=== PATIENT | male | born 1935 | race African-American/Black ===

== ENCOUNTER 2018-03-12 14:35 | Inpatient (IN) | payer MEDICARE, BC ==
[2018-03-12 15:32] LABS: Mean Corpuscular HGB CONC 33.2 g/dL (32.0-36.0); Mean Corpuscular Hemoglobin 31.1 pg (27.0-31.0); Mean Corpuscular Volume 93.5 fL (78.0-98.0); Mean Platelet Volume 8.1 fL (7.4-10.4); Platelet Count 257 thou/uL (130-400); Red Blood Cell (RBC) Count 3.86 mill/uL (4.70-6.10); White Blood Cell (WBC) Count 6.5 thou/uL (4.8-10.8)
[2018-03-12 15:53] LABS: ALT (SGPT) 27 U/L (8-55); AST (SGOT) 30 U/L (5-34); Albumin 4.2 g/dL (3.4-4.8); Alkaline Phosphatase 98 U/L (40-150); Anion Gap 18 mmol/L (10-20); BUN (Urea Nitrogen) 46 mg/dL (8.4-25.7); Bilirubin, Total 0.6 mg/dL (0.2-1.2); Calc. Creatinine Clearance 0 mL/min (70-130); Calcium 9.4 mg/dL (7.8-10.44); Carbon Dioxide 18 mmol/L (23-31); Chloride 106 mmol/L (98-107); Estimated GFR-MDRD 11; Glucose 98 mg/dL (83-110); Protein, Total 8.2 g/dL (5.8-8.1); Sodium 138 mmol/L (136-145)
[2018-03-12 15:56] LABS: Band 1 % (5-11); Burr Cells SLIGHT = 2-5 cells (100X) (0-1/hpf); Elliptocytes SLIGHT = 2-5 cells (100X) (0-1/hpf); Eosinophils 1 % (0-10); Lymphocytes 38 % (21-51); MDiff Complete? YES; Monocytes 18 % (0-10); Neutrophil 40 % (42-75); Ovalocytes SLIGHT = 2-5 cells (100X) (0-1/hpf); PLT Morphology Comment Appears Adequate; Reactive Lymphocytes 2 % (0-10); Tear Drops SLIGHT = 2-5 cells (100X) (0-1/hpf)
[2018-03-12 17:58] VITALS: BMI 23.5
[2018-03-12] MEDS ORDERED: Ondansetron ODT 4 MG TAB PO PRN (19:16)
[2018-03-12] MEDS ORDERED: Senokot 8.6 MG TAB PO PRN (19:16)
[2018-03-12] MEDS ORDERED: Bisacodyl 5 MG TAB PO PRN (19:16)
[2018-03-12] MEDS ORDERED: Sodium Chloride 0.9% 1,000 ML IV SCH (19:30)
[2018-03-12] MEDS: Famotidine/PF 20 mg/2ml Vial SLOW IVP SCH (20:58)
[2018-03-12] MEDS: Heparin 5,000 UNITS/ML VIAL SC SCH (20:58)
--- NOTE | 2018-03-12 21:22 | ULT ---
RENAL ULTRASOUND: 03/12/18 INDICATION: Acute renal injury. COMPARISON: None. FINDINGS: The right kidney measures 10.1 x 5 x 4.7 cm. Left kidney measures 10.7 x 6.1 x 5.3 cm. No focal renal lesion or hydronephrosis is evident. The bladder is largely decompressed. IMPRESSION: No focal renal lesion or hydronephrosis. POS: [facility]
[2018-03-12] MEDS ORDERED: Dronedarone HCl 400 MG TAB PO SCH (22:00)
[2018-03-12] MEDS ORDERED: Furosemide 20 MG TAB PO SCH (22:00)
[2018-03-12] MEDS ORDERED: Tamsulosin HCl 0.4 MG CAP PO SCH (22:00)
[2018-03-12] MEDS ORDERED: Lisinopril 20 MG TAB PO SCH (22:00)
[2018-03-12] MEDS ORDERED: Ezetimibe 10 MG TAB PO SCH (22:00)
[2018-03-12] MEDS ORDERED: Simvastatin 20 MG TAB PO SCH (22:00)
[2018-03-13 02:04] LABS: Bilirubin Small (Negative); Blood, Urine Negative (Negative); Clarity CLEAR (Clear); Glucose, Urine (Dipstick) Negative (Negative); Leukocyte Negative (Negative); Nitrite Negative (Negative); Protein, Urine (Dipstick) Negative (Neg-Trace); Specific Gravity, Urine 1.014 (1.002-1.036); Urobilinogen 0.2 mg/dL (0.2-1.0); pH, Urine 5.5 (5.0-9.0)
[2018-03-13 02:07] LABS: Bacteria/HPF None Seen HPF (None Seen); WBC/HPF 0-3 HPF (0-3)
[2018-03-13 02:11] LABS: Hyaline Casts/LPF >50 HYALINE CAST LPF (0-3 Hyaline); Pathc Cast-AUWi Flag 11.48 (0-2.49)
[2018-03-13 02:50] LABS: Other Casts/LPF None Seen LPF (0-3 Hyaline); Renal Epithelial None Seen HPF (0-3); Transitional Epithelial NONE SEEN HPF (0-3)
[2018-03-13 04:59] LABS: #Eosinphils 0.1 thou/uL (0.0-0.7); #Lymphocytes 2.8 thou/uL (1.20-3.40); #Monocytes 0.8 thou/uL (0.11-0.59); #Neutrophils 1.9 thou/uL (1.40-6.50); %Basophils 0.8 % (0.0-1.0); %Eosinophils 2.2 % (0.0-10.0); %Lymphocytes 49.7 % (21.0-51.0); %Monocytes 14.2 % (0.0-10.0); %Neutrophils 33.1 % (42.0-75.0); Hemoglobin 10.5 g/dL (14.0-18.0); Mean Corpuscular HGB CONC 33.8 g/dL (32.0-36.0); Mean Corpuscular Hemoglobin 31.1 pg (27.0-31.0); Mean Corpuscular Volume 91.9 fL (78.0-98.0); Mean Platelet Volume 8.5 fL (7.4-10.4); Platelet Count 235 thou/uL (130-400); RBC Distribution Width 11.9 % (11.5-14.5); Red Blood Cell (RBC) Count 3.38 mill/uL (4.70-6.10); White Blood Cell (WBC) Count 5.7 thou/uL (4.8-10.8)
[2018-03-13 05:07] LABS: Anion Gap 14 mmol/L (10-20); BUN (Urea Nitrogen) 47 mg/dL (8.4-25.7); Calc. Creatinine Clearance 12 mL/min (70-130); Calcium 8.4 mg/dL (7.8-10.44); Carbon Dioxide 16 mmol/L (23-31); Chloride 108 mmol/L (98-107); Estimated GFR-MDRD 13; Glucose 83 mg/dL (83-110); Magnesium 1.5 mg/dL (1.6-2.6); Potassium 3.4 mmol/L (3.5-5.1); Sodium 135 mmol/L (136-145)
[2018-03-13] MEDS ORDERED: Polyethylene Glycol 3350 17 GM Packet PO PRN (07:05)
--- NOTE | 2018-03-13 07:14 | PDOC.EVN ---
Event Note - Event Note Event Note: h&p [id number]
--- NOTE | 2018-03-13 07:41 | HP ---
PRIMARY CARE PHYSICIAN: Dr. Eligio Acuña CHIEF COMPLAINT: Diarrhea. HISTORY OF PRESENT ILLNESS: This is an 83-year-old male with a known history of coronary artery disease, hypertension, diabetes, atrial fibrillation, who presents with a chief complaint of diarrhea. It is described as a watery diarrhea approximately 5-6 times a day for the last 3-4 days. The patient does not report any nausea or abdominal pain with this diarrhea. Denies any episodes of emesis as well. The patient presumably came in initially for diarrhea, but was also found to be in acute renal failure in the emergency department. At the time of my evaluation, the patient has no other complaints and is actually able to tolerate his supper. REVIEW OF SYSTEMS: As per HPI. CONSTITUTIONAL: Denies any significant weight gain or loss. Denies any recent fevers or chills. HEENT: No headaches, no lightheadedness, no vision changes. CARDIOVASCULAR: No issues with chest pain, chest pressure, nausea, vomiting, exertional dyspnea, numbness or tingling. RESPIRATORY: Denies any issues with cough, congestion, shortness of breath or recent upper respiratory infection. GASTROINTESTINAL: As per above. GENITOURINARY: The patient denies any change in his urinary color, quantity, frequency or odor. MUSCULOSKELETAL: Denies any new myalgias or arthralgias. SKIN: Denies any new rashes or lymphadenopathy. The remainder of the review of systems otherwise negative. PAST MEDICAL HISTORY: 1. Coronary artery disease status post coronary artery bypass graft. Unknown number of vessels. 2. Atrial fibrillation. 3. Diabetes. 4. Hypertension. 5. Hypothyroidism. 6. Status post left carotid endarterectomy. 7. Status post orthopedic surgery. HOME MEDICATIONS: As per EMR. His current list appears to include the following: Multivitamin 1 tab p.o. q.a.m., dronedarone 400 mg p.o. b.i.d., aspirin 81 mg p.o. daily, amlodipine 10 mg p.o. daily. Furosemide 20 mg p.o. b.i.d., Vytorin, simvastatin 10-20 mg p.o. at bedtime, lisinopril 20 mg p.o. b.i.d. Levothyroxine 50 mcg p.o. q.a.m., tamsulosin 0.4 mg p.o. at bedtime., polyethylene glycol 17 grams p.o. daily p.r.n., pantoprazole 40 mg p.o. b.i.d. The patient denies any awareness if his medications have changed in the last month or so. The patient states that we should "ask his ". The patient also denies any usage of supplemental medications, over the counter medication, vitamins or herbal regimens. SOCIAL HISTORY: The patient denies any alcohol, tobacco or illicit drug use. CODE STATUS: He endorses be FULL CODE at this point in time with his as his designated decision maker if he is unable to make his own medical decisions. FAMILY HISTORY: The patient denies any known family history of renal disease or GI disease. PHYSICAL EXAMINATION: VITAL SIGNS: Stable. GENERAL: The patient is awake, alert, appropriate, in no acute distress, seated in the hospital bed eating his dinner. HEENT: Normocephalic, atraumatic, slightly dry mucous membranes. Extraocular muscles are intact. CARDIOVASCULAR: S1, S2. No murmurs, rubs or gallops. Pulses 2+ bilateral upper extremities, no pitting pedal edema. RESPIRATORY: Reasonable air movement. No conversational dyspnea. Grossly clear to auscultation without wheezes, rales or rhonchi. ABDOMEN: Positive bowel sounds, soft, currently nontender to palpation. MUSCULOSKELETAL: Able to move all 4 extremities independently LABORATORY AND IMAGING: CBC: WBC 6.5, hemoglobin 12.0, hematocrit 36.1, platelets 257,000. CMP: Sodium 138, potassium 4.0, chloride 106, bicarbonate 18, BUN 46, creatinine 6.16, glucose 98, calcium 9.4, total bilirubin 0.6, AST 30, ALT 27, alkaline phosphatase 88, total protein 8.2, albumin 4.2, UA: Significant for small bilirubin, 7-10 RBC's, 4-6 squamous epithelial cells and greater than 50 hyaline casts. ASSESSMENT AND PLAN: This is an 83-year-old male who initially presented with chief complaint of diarrhea. 1. Watery diarrhea. We will check a C. diff for the patient. He states that his last dose of antibiotic was in January earlier this year. He does not recall exactly what condition that it was prescribed before. We will continue with symptomatic management, also with IV fluids. Consideration for a component of volume depletion and dehydration secondary to his week-long diarrhea 2. Acute renal failure on chronic renal disease could be prerenal, which certainly plays a component. We will consult Nephrology. Order renal ultrasound as well. 3. Coronary artery disease, we will continue the patient on his home regimen. 4. Hypothyroidism. Continue the patient on his home levothyroxine. 5. Hypertension. Continue the patient on his home regimen. 6. Diet: Cardiac. 7. Activity: As tolerated. 8. DVT prophylaxis with heparin. MTDD
[2018-03-13] MEDS: Dronedarone HCl 400 MG TAB PO SCH ×2 (07:48→21:32)
[2018-03-13] MEDS: Aspirin 81 mg Enteric Coated Tablet PO SCH (07:48)
[2018-03-13] MEDS: Heparin 5,000 UNITS/ML VIAL SC SCH ×3 (07:49→21:35)
[2018-03-13] MEDS: Levothyroxine Sodium 50 MCG TAB PO SCH (07:49)
[2018-03-13] MEDS: Multivitamin W/ Minerals 1 TAB PO SCH (07:49)
[2018-03-13] MEDS ORDERED: Dronedarone HCl 400 MG TAB PO SCH (08:00)
[2018-03-13] MEDS ORDERED: Potassium Chloride 20 MEQ TAB PO SCH (08:15)
[2018-03-13] MEDS ORDERED: Dextrose 5 % And 0.9 % NaCl 1,000 ML IV SCH (08:15)
[2018-03-13] MEDS ORDERED: Magnesium Sulfate 2 GM in Sodium Chloride 0.9% 100 ML IVPB SCH (08:15)
[2018-03-13] MEDS ORDERED: Sodium Chloride 0.65% Nasal 44 ML BOT EA NARE PRN (08:18)
[2018-03-13] MEDS ORDERED: Ondansetron HCl/PF 4 MG/2 ML Vial IVP PRN (08:18)
[2018-03-13] MEDS ORDERED: Chloraseptic Spray 180 ml Bottle PO PRN (08:18)
[2018-03-13] MEDS ORDERED: Loratadine 10 MG TAB PO PRN (08:18)
[2018-03-13] MEDS ORDERED: Calcium Carbonate 500 MG ChewTAB PO PRN (08:18)
[2018-03-13] MEDS ORDERED: Eucerin (Mineral Oil/Petrolatum,White) 30 gm Jar TOP PRN (08:18)
[2018-03-13] MEDS ORDERED: Loperamide HCl 2 MG CAP PO PRN (08:18)
[2018-03-13] MEDS ORDERED: Diphenoxylate HCl/Atropine Tablet PO PRN (08:18)
[2018-03-13] MEDS ORDERED: HYDROcodone/Acetaminophen 5/325 mg Tablet PO PRN (08:18)
[2018-03-13] MEDS ORDERED: Acetaminophen 325 MG TAB PO PRN (08:18)
[2018-03-13] MEDS ORDERED: Diabetic Tussin 200 MG/10 ML UDCUP PO PRN (08:18)
[2018-03-13] MEDS ORDERED: hydrALAZINE 20 MG/ML VIAL SLOW IVP PRN (08:18)
[2018-03-13] MEDS ORDERED: Artificial Tears 18 DROP/0.9 ML EA EYE PRN (08:18)
[2018-03-13] MEDS ORDERED: Simvastatin 20 MG TAB PO SCH (09:00)
[2018-03-13] MEDS ORDERED: Ezetimibe 10 MG TAB PO SCH (09:00)
[2018-03-13] MEDS ORDERED: Lisinopril 20 MG TAB PO SCH (09:00)
[2018-03-13] MEDS ORDERED: Furosemide 20 MG TAB PO SCH (09:00)
[2018-03-13] MEDS ORDERED: Amlodipine 10 MG TAB PO SCH (09:00)
[2018-03-13] MEDS ORDERED: LYCOP PO SCH (09:00)
[2018-03-13] MEDS ORDERED: [UNRECOGNIZED DRUG - OTHER] PO SCH (09:00)
[2018-03-13] MEDS ORDERED: IRON PO SCH (09:00)
[2018-03-13] MEDS ORDERED: FOLIC PO SCH (09:00)
[2018-03-13] MEDS ORDERED: MULTIVIT MINS PO SCH (09:00)
[2018-03-13] MEDS: Potassium Chloride 20 MEQ in Premix Bag 1 BAG IVPB SCH ×3 (09:55→12:19)
[2018-03-13] MEDS: Potassium Chloride 20 MEQ in Lactated Ringer's 1,000 ML IV SCH ×2 (11:02→21:31)
--- NOTE | 2018-03-13 11:59 | PDOC.PN ---
- Subjective Encounter Start Date: 03/13/18 Encounter Start Time: 08:45 Patient seen and examined. No new complaints. No overnight events - Objective Resuscitation Status: Resuscitation Status FULL:Full Resuscitation MAR Reviewed: Yes Vital Signs & Weight: Vital Signs (12 hours) Temp Pulse Resp BP Pulse Ox 03/13/18 11:14 98.1 F 54 L 18 105/65 96 03/13/18 08:00 98.1 F 61 20 03/13/18 07:13 98.1 F 61 20 110/63 97 03/13/18 04:14 97.8 F 56 L 16 126/66 96 03/13/18 00:00 98.3 F 62 18 109/51 L Weight Weight 183 lb I&O: 03/12/18 03/13/18 03/14/18 06:59 06:59 06:59 Intake Total 1999 Balance 1999 Result Diagrams: 03/13/18 04:00 03/13/18 04:00 Radiology Reviewed by me: Yes (renal us is normal) Phys Exam - Physical Examination Constitutional: NAD HEENT: PERRLA, moist MMs, sclera anicteric Neck: no JVD, supple Respiratory: no wheezing, no rales, no rhonchi Cardiovascular: RRR, no significant murmur, no rub Gastrointestinal: soft, non-tender, no distention, positive bowel sounds Musculoskeletal: no edema, pulses present Neurological: non-focal, normal sensation, moves all 4 limbs Psychiatric: normal affect, A&O x 3 Skin: no rash, normal turgor Dx/Plan (1) Acute diarrhea Code(s): R19.7 - DIARRHEA, UNSPECIFIED Status: Acute (2) Acute renal failure superimposed on stage 3 chronic kidney disease Code(s): N17.9 - ACUTE KIDNEY FAILURE, UNSPECIFIED; N18.3 - CHRONIC KIDNEY DISEASE, STAGE 3 (MODERATE) Status: Acute (3) Hypokalemia Code(s): E87.6 - HYPOKALEMIA Status: Acute (4) Hypomagnesemia Code(s): E83.42 - HYPOMAGNESEMIA Status: Acute (5) Normal anion gap metabolic acidosis Code(s): E87.2 - ACIDOSIS Status: Acute (6) Atrial fibrillation Code(s): I48.91 - UNSPECIFIED ATRIAL FIBRILLATION Status: Chronic (7) BPH (benign prostatic hyperplasia) Code(s): N40.0 - BENIGN PROSTATIC HYPERPLASIA WITHOUT LOWER URINRY TRACT SYMP Status: Chronic (8) Dyslipidemia Code(s): E78.5 - HYPERLIPIDEMIA, UNSPECIFIED Status: Chronic (9) GERD (gastroesophageal reflux disease) Code(s): K21.9 - GASTRO-ESOPHAGEAL REFLUX DISEASE WITHOUT ESOPHAGITIS Status: Chronic (10) Hypertension Code(s): I10 - ESSENTIAL (PRIMARY) HYPERTENSION Status: Chronic (11) Hypothyroidism Code(s): E03.9 - HYPOTHYROIDISM, UNSPECIFIED Status: Chronic - Plan cont current plan of care, plan discussed w/ family * replace potassium and magnesium * start bicarbonate drip * hold BP meds for low BP * nephrology consulted * medication reviewed as below * supportive treatment. Review of Systems - Review of Systems Eyes: negative: Pain, Vision Change, Conjunctivae Inflammation, Eyelid Inflammation, Redness, Other ENT: negative: Ear Pain, Ear Discharge, Nose Pain, Nose Discharge, Nose Congestion, Mouth Pain, Mouth Swelling, Throat Pain, Throat Swelling, Other Respiratory: negative: Cough, Dry, Shortness of Breath, Hemoptysis, SOB with Excertion, Pleuritic Pain, Sputum, Wheezing Cardiovascular: negative: chest pain, palpitations, orthopnea, paroxysmal nocturnal dyspnea, edema, light headedness, other Gastrointestinal: Diarrhea. negative: Nausea, Vomiting, Abdominal Pain, Constipation, Melena, Hematochezia, Other Genitourinary: negative: Dysuria, Frequency, Incontinence, Hematuria, Retention , Other Musculoskeletal: negative: Neck Pain, Shoulder Pain, Arm Pain, Back Pain, Hand Pain, Leg Pain, Foot Pain, Other Skin: negative: Rash, Lesions, Good, Bruising, Other - Medications/Allergies Allergies/Adverse Reactions: Allergies Allergy/AdvReac Type Severity Reaction Status Date / Time No Known Allergies Allergy Verified 03/12/18 17:56 Medications: Current Medications Acetaminophen (Tylenol) 650 mg PO Q4H PRN PRN Reason: Headache/Fever or Mild Pain Hydrocodone Bitart/Acetaminophen ([place] 5/325) 1 tab PO Q4H PRN PRN Reason: Moderate Pain (4-6) Artificial Tears (Tears Naturale) 0 drop EA EYE PRN PRN PRN Reason: Dry Eyes Aspirin (Ecotrin) 81 mg PO DAILY [facility] Last Admin: 03/13/18 07:48 Dose: 81 mg Calcium Carbonate (Tums) 1,000 mg PO Q4H PRN PRN Reason: Heartburn or Indigestion Diphenoxylate HCl/Atropine (Lomotil) 1 tab PO QIDPRN PRN PRN Reason: Diarrhea/Loose Stools Dronedarone (Multaq) 400 mg PO BID [facility] Last Admin: 03/13/18 07:48 Dose: 400 mg Ezetimibe (Zetia) 10 mg PO HS [facility] Famotidine (Pepcid) 20 mg SLOW IVP QPM [facility] Last Admin: 03/12/18 20:58 Dose: 20 mg Guaifenesin (Robitussin Sf) 200 mg PO Q4H PRN PRN Reason: Cough Heparin Sodium (Porcine) (Heparin) 5,000 units SC BID [facility] Last Admin: 03/13/18 08:54 Dose: Not Given Hydralazine HCl (Apresoline) 10 mg SLOW IVP Q4H PRN PRN Reason: Systolic BP > 180 Potassium Chloride 20 meq/ (Device) 100 mls @ 50 mls/hr IVPB Q2H [facility] Stop: 03/13/18 12:59 Last Admin: 03/13/18 09:55 Dose: 100 mls Potassium Chloride 20 meq/ (Lactated Ringer's) 1,010 mls @ 100 mls/hr IV .Q10H6M [facility] Last Admin: 03/13/18 11:02 Dose: 1,010 mls Iron/Minerals/Multivitamins (Theragran M) 1 tab PO DAILY [facility] Last Admin: 03/13/18 07:49 Dose: 1 tab Levothyroxine Sodium (Synthroid) 50 mcg PO QAM [facility] Last Admin: 03/13/18 07:49 Dose: 50 mcg Loperamide HCl (Imodium) 2 mg PO PRN PRN PRN Reason: Diarrhea/Loose Stools Loratadine (Claritin) 10 mg PO DAILYPRN PRN PRN Reason: Sinus Symptoms Mineral Oil/White Petrolatum (Eucerin Cream) 0 gm TOP BIDPRN PRN PRN Reason: Dry Skin Ondansetron HCl (Zofran Odt) 4 mg PO Q6H PRN PRN Reason: Nausea/Vomiting Ondansetron HCl (Zofran) 4 mg IVP Q6H PRN PRN Reason: Nausea/Vomiting Pantoprazole Sodium (Protonix) 40 mg PO DAILY [facility] Last Admin: 03/13/18 08:54 Dose: Not Given Phenol (Chloraseptic [place] 180 Ml Bot) 0 ml PO PRN PRN PRN Reason: Sore Throat Simvastatin (Zocor) 20 mg PO HS [facility] Sodium Chloride (Flush - Normal Saline) 10 ml IVF Q12HR [facility] Last Admin: 03/13/18 07:49 Dose: 10 ml Sodium Chloride (Flush - Normal Saline) 10 ml IVF PRN PRN PRN Reason: Saline Flush Sodium Chloride ([place] Nasal [place] 0.65%) 0 ml EA NARE QIDPRN PRN PRN Reason: Nasal Congestion Tamsulosin HCl (Flomax) 0.4 mg PO HS [facility]
--- NOTE | 2018-03-13 12:10 | CON ---
DATE OF CONSULTATION: 03/13/2018 HISTORY OF PRESENT ILLNESS: Mr. Hendrickson is an 83-year-old black male with known history of chronic r enal failure, admitted for diarrhea. He was noted to have worsening renal dysfunction, hence the abiola al consultation. IV hydration has been temporarily done. No other complaints today. He denies any chest pain or shortness of breath. REVIEW OF SYSTEMS: Positive for diarrhea. No nausea, no vomiting. Appetite fair. Energy level is fair. No headache, no diplopia, no syncopal episode, no productive cough, no fever or chills, no sor e throat, occasional joint pains. No abdominal pain. No hematochezia, no melena, no hematemesis. MEDICATIONS: The patient currently on [place] 5/325 q.4 hours as needed, Tums 1000 mg q.4., Lomotil p. r.n., Multaq 400 mg p.o. b.i.d., Ezetimibe 10 mg at bedtime, Pepcid 20 mg IV daily, heparin 5000 unit s subcu q.8, levothyroxine 50 mcg q.a.m., status post magnesium sulfate infusion, Zofran 4 mg IV q.6 hours p.r.n., Protonix 40 mg tab once a day, KCl 20 every day. PAST MEDICAL HISTORY: 1. Hypothyroidism. 2. Chronic renal failure. 3. Chronic low back pain. 4. DJD. 5. Coronary artery disease. 6. BPH. 7. Hyperlipidemia. 8. Cardiac arrhythmia/atrial fibrillation. 9. Peripheral vascular disease. PAST SURGICAL HISTORY: 1. Status post bilateral knee surgery. 2. Status post cardiac catheterization. 3. Status post CABG. 4. Status post back surgery. 5. Status post colonoscopy. 6. Status post left carotid endarterectomy. SOCIAL HISTORY: Originally from [place], but currently lives in [place], , 6 children , 4 with 2 being adopted. 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 He lives in [place]. He used to smoke, but currently no smoking. Education; 10th grade. Occasional alcohol, no IV drug a buse. ALLERGIES: None. TRAUMA: None. IMMUNIZATIONS: Up to date. HOSPITALIZATIONS: Please see past medical history. FAMILY HISTORY: No family history of ESRD. PHYSICAL EXAMINATION: VITAL SIGNS: Blood pressure is 110/63, heart rate 61, respiratory rate 20, temperature 98.1, pulse o x 97%. GENERAL: Noted to be awake, alert, ambulatory, comfortable, not in distress. Walks with a cane. SKIN: Adequate turgor. HEENT: Slightly pale conjunctivae, anicteric sclerae. NECK: No neck mass, no carotid bruits, no JVD. CHEST: No deformities. LUNGS: Clear breath sounds. HEART: Normal sinus rhythm. No murmur, no gallops or rubs. ABDOMEN: Globular, soft, nontender. No masses. EXTREMITIES: No edema, no deformities. LABORATORY: 03/13/2018 - White count 5.7, hemoglobin 10.5. Sodium 135, potassium 3.4, chloride 108, carbon dioxide 16, BUN 47, creatinine 5.26, glucose 83, calcium 8.4, magnesium 1.5, albumin 4.2. 03/12/2018 - BUN 46, creatinine 6.16. 01/28/2018 - BUN 20, creatinine 1.31. Renal ultrasound was said to be normal. ASSESSMENT AND PLAN: Acute kidney injury - consider hemodynamically mediated renal dysfunction. The patient has been having diarrhea for several days. The plan is to continue IV hydration. I would s uggest we continue with lactated Ringer's solution at 100 mL per hour. There is no indication for an y dialytic intervention. Hopefully, renal function will improve with IV hydration. Thank you for the consult. We will continue to follow.
[2018-03-13] MEDS ORDERED: EZETIMIBE PO SCH (21:00)
[2018-03-13] MEDS ORDERED: Tamsulosin HCl 0.4 MG CAP PO SCH (21:00)
[2018-03-13] MEDS ORDERED: SIMVASTATIN PO SCH (21:00)
[2018-03-13] MEDS: Ezetimibe 10 MG TAB PO SCH (21:32)
[2018-03-13] MEDS: Tamsulosin HCl 0.4 MG CAP PO SCH (21:32)
[2018-03-13] MEDS: Famotidine/PF 20 mg/2ml Vial SLOW IVP SCH (21:33)
[2018-03-13] MEDS: Simvastatin 20 MG TAB PO SCH (21:34)
[2018-03-14 05:07] LABS: #Eosinphils 0.1 thou/uL (0.0-0.7); #Monocytes 0.7 thou/uL (0.11-0.59); #Neutrophils 2.9 thou/uL (1.40-6.50); %Basophils 0.7 % (0.0-1.0); %Eosinophils 2.2 % (0.0-10.0); %Lymphocytes 34.6 % (21.0-51.0); %Monocytes 12.6 % (0.0-10.0); %Neutrophils 49.8 % (42.0-75.0); Hemoglobin 11.1 g/dL (14.0-18.0); Mean Corpuscular HGB CONC 34.1 g/dL (32.0-36.0); Mean Corpuscular Hemoglobin 31.1 pg (27.0-31.0); Mean Corpuscular Volume 91.2 fL (78.0-98.0); Platelet Count 246 thou/uL (130-400); RBC Distribution Width 11.8 % (11.5-14.5); Red Blood Cell (RBC) Count 3.58 mill/uL (4.70-6.10); White Blood Cell (WBC) Count 5.9 thou/uL (4.8-10.8)
[2018-03-14 05:32] LABS: Anion Gap 13 mmol/L (10-20); BUN (Urea Nitrogen) 37 mg/dL (8.4-25.7); Calc. Creatinine Clearance 25 mL/min (70-130); Calcium 9.1 mg/dL (7.8-10.44); Carbon Dioxide 16 mmol/L (23-31); Chloride 113 mmol/L (98-107); Estimated GFR-MDRD 29; Glucose 105 mg/dL (83-110); Phosphorus 2.7 mg/dL (2.3-4.7); Potassium 4.2 mmol/L (3.5-5.1); Sodium 138 mmol/L (136-145)
[2018-03-14] MEDS: Potassium Chloride 20 MEQ in Lactated Ringer's 1,000 ML IV SCH ×4 (05:33→18:19)
[2018-03-14] MEDS: Aspirin 81 mg Enteric Coated Tablet PO SCH (09:26)
[2018-03-14] MEDS: Levothyroxine Sodium 50 MCG TAB PO SCH (09:27)
[2018-03-14] MEDS: Multivitamin W/ Minerals 1 TAB PO SCH (09:27)
[2018-03-14] MEDS: Dronedarone HCl 400 MG TAB PO SCH ×2 (09:27→20:01)
[2018-03-14] MEDS: Heparin 5,000 UNITS/ML VIAL SC SCH ×2 (09:27→20:04)
--- NOTE | 2018-03-14 11:34 | PDOC.PN ---
- Subjective Encounter Start Date: 03/14/18 Encounter Start Time: 09:15 Patient seen and examined. No new complaints. No overnight events - Objective Resuscitation Status: Resuscitation Status FULL:Full Resuscitation MAR Reviewed: Yes Vital Signs & Weight: Vital Signs (12 hours) Temp Pulse Resp BP Pulse Ox 03/14/18 07:20 97.9 F 58 L 16 145/70 H 94 L Weight Weight 183 lb I&O: 03/13/18 03/14/18 03/15/18 06:59 06:59 06:59 Intake Total 1999 2740 Output Total 300 Balance 1999 2440 Result Diagrams: 03/14/18 04:33 03/14/18 04:33 Phys Exam - Physical Examination Constitutional: NAD HEENT: PERRLA, moist MMs, sclera anicteric Neck: no JVD, supple Respiratory: no wheezing, no rales, no rhonchi Cardiovascular: RRR, no significant murmur, no rub Gastrointestinal: soft, non-tender, no distention, positive bowel sounds Musculoskeletal: no edema, pulses present Neurological: non-focal, normal sensation, moves all 4 limbs Psychiatric: normal affect, A&O x 3 Skin: no rash, normal turgor Dx/Plan (1) Acute diarrhea Code(s): R19.7 - DIARRHEA, UNSPECIFIED Status: Acute (2) Acute renal failure superimposed on stage 3 chronic kidney disease Code(s): N17.9 - ACUTE KIDNEY FAILURE, UNSPECIFIED; N18.3 - CHRONIC KIDNEY DISEASE, STAGE 3 (MODERATE) Status: Acute (3) Hypokalemia Code(s): E87.6 - HYPOKALEMIA Status: Acute (4) Hypomagnesemia Code(s): E83.42 - HYPOMAGNESEMIA Status: Acute (5) Normal anion gap metabolic acidosis Code(s): E87.2 - ACIDOSIS Status: Acute (6) Atrial fibrillation Code(s): I48.91 - UNSPECIFIED ATRIAL FIBRILLATION Status: Chronic (7) BPH (benign prostatic hyperplasia) Code(s): N40.0 - BENIGN PROSTATIC HYPERPLASIA WITHOUT LOWER URINRY TRACT SYMP Status: Chronic (8) Dyslipidemia Code(s): E78.5 - HYPERLIPIDEMIA, UNSPECIFIED Status: Chronic (9) GERD (gastroesophageal reflux disease) Code(s): K21.9 - GASTRO-ESOPHAGEAL REFLUX DISEASE WITHOUT ESOPHAGITIS Status: Chronic (10) Hypertension Code(s): I10 - ESSENTIAL (PRIMARY) HYPERTENSION Status: Chronic (11) Hypothyroidism Code(s): E03.9 - HYPOTHYROIDISM, UNSPECIFIED Status: Chronic - Plan cont current plan of care, plan discussed w/ family * medication reviewed as below * symptomatic treatment * continue IVF. Review of Systems - Review of Systems Eyes: negative: Pain, Vision Change, Conjunctivae Inflammation, Eyelid Inflammation, Redness, Other ENT: negative: Ear Pain, Ear Discharge, Nose Pain, Nose Discharge, Nose Congestion, Mouth Pain, Mouth Swelling, Throat Pain, Throat Swelling, Other Respiratory: negative: Cough, Dry, Shortness of Breath, Hemoptysis, SOB with Excertion, Pleuritic Pain, Sputum, Wheezing Cardiovascular: negative: chest pain, palpitations, orthopnea, paroxysmal nocturnal dyspnea, edema, light headedness, other Gastrointestinal: negative: Nausea, Vomiting, Abdominal Pain, Diarrhea, Constipation, Melena, Hematochezia, Other Genitourinary: negative: Dysuria, Frequency, Incontinence, Hematuria, Retention , Other Musculoskeletal: negative: Neck Pain, Shoulder Pain, Arm Pain, Back Pain, Hand Pain, Leg Pain, Foot Pain, Other Skin: negative: Rash, Lesions, Good, Bruising, Other - Medications/Allergies Allergies/Adverse Reactions: Allergies Allergy/AdvReac Type Severity Reaction Status Date / Time No Known Allergies Allergy Verified 03/12/18 17:56 Medications: Current Medications Acetaminophen (Tylenol) 650 mg PO Q4H PRN PRN Reason: Headache/Fever or Mild Pain Hydrocodone Bitart/Acetaminophen ([place] 5/325) 1 tab PO Q4H PRN PRN Reason: Moderate Pain (4-6) Artificial Tears (Tears Naturale) 0 drop EA EYE PRN PRN PRN Reason: Dry Eyes Aspirin (Ecotrin) 81 mg PO DAILY [facility] Last Admin: 03/14/18 09:26 Dose: 81 mg Calcium Carbonate (Tums) 1,000 mg PO Q4H PRN PRN Reason: Heartburn or Indigestion Diphenoxylate HCl/Atropine (Lomotil) 1 tab PO QIDPRN PRN PRN Reason: Diarrhea/Loose Stools Dronedarone (Multaq) 400 mg PO BID [facility] Last Admin: 03/14/18 09:27 Dose: 400 mg Ezetimibe (Zetia) 10 mg PO HS [facility] Last Admin: 03/13/18 21:32 Dose: 10 mg Famotidine (Pepcid) 20 mg SLOW IVP QPM [facility] Last Admin: 03/13/18 21:33 Dose: 20 mg Guaifenesin (Robitussin Sf) 200 mg PO Q4H PRN PRN Reason: Cough Heparin Sodium (Porcine) (Heparin) 5,000 units SC BID [facility] Last Admin: 03/14/18 09:27 Dose: 5,000 units Hydralazine HCl (Apresoline) 10 mg SLOW IVP Q4H PRN PRN Reason: Systolic BP > 180 Potassium Chloride 20 meq/ (Lactated Ringer's) 1,010 mls @ 100 mls/hr IV .Q10H6M [facility] Last Admin: 03/14/18 06:18 Dose: 1,010 mls Iron/Minerals/Multivitamins (Theragran M) 1 tab PO DAILY [facility] Last Admin: 03/14/18 09:27 Dose: 1 tab Levothyroxine Sodium (Synthroid) 50 mcg PO QAM [facility] Last Admin: 03/14/18 09:27 Dose: 50 mcg Loperamide HCl (Imodium) 2 mg PO PRN PRN PRN Reason: Diarrhea/Loose Stools Loratadine (Claritin) 10 mg PO DAILYPRN PRN PRN Reason: Sinus Symptoms Mineral Oil/White Petrolatum (Eucerin Cream) 0 gm TOP BIDPRN PRN PRN Reason: Dry Skin Ondansetron HCl (Zofran Odt) 4 mg PO Q6H PRN PRN Reason: Nausea/Vomiting Ondansetron HCl (Zofran) 4 mg IVP Q6H PRN PRN Reason: Nausea/Vomiting Pantoprazole Sodium (Protonix) 40 mg PO DAILY [facility] Last Admin: 03/14/18 09:27 Dose: 40 mg Phenol (Chloraseptic [place] 180 Ml Bot) 0 ml PO PRN PRN PRN Reason: Sore Throat Simvastatin (Zocor) 20 mg PO HS [facility] Last Admin: 03/13/18 21:34 Dose: 20 mg Sodium Chloride (Flush - Normal Saline) 10 ml IVF Q12HR [facility] Last Admin: 03/14/18 09:28 Dose: 10 ml Sodium Chloride (Flush - Normal Saline) 10 ml IVF PRN PRN PRN Reason: Saline Flush Sodium Chloride ([place] Nasal [place] 0.65%) 0 ml EA NARE QIDPRN PRN PRN Reason: Nasal Congestion Tamsulosin HCl (Flomax) 0.4 mg PO [facility] Last Admin: 03/13/18 21:32 Dose: 0.4 mg
--- NOTE | 2018-03-14 14:08 | HP ---
HISTORY OF PRESENT ILLNESS: Mr. Trivedi is an 83-year-old black male, who was seen for an acute kid ermelinda injury on top of his chronic renal failure. The feeling of his acute kidney injury is that this was a hemodynamically mediated renal dysfunction in a background of diarrhea. He was given IV hydrat ion. Renal function is slowly improving. No complaints of chest pain or shortness of breath. PHYSICAL EXAMINATION: VITAL SIGNS: Blood pressure is 145/70, heart rate 58, respiratory rate 16, temperature 97.9, and pul se ox 94%. GENERAL: Awake, alert, comfortable, not in distress. SKIN: Adequate turgor. HEENT: He has pinkish conjunctivae, anicteric sclerae. NECK: No neck mass, no carotid bruits, no JVD. CHEST: No deformities. LUNGS: Clear breath sounds. No wheezing, no crackles. HEART: Normal sinus rhythm. No murmur, no gallops, no rubs. ABDOMEN: Globular, soft, nontender. No masses. EXTREMITIES: No edema, no deformities. MEDICATIONS: Of 03/14/2018 were reviewed. LABORATORY DATA: On 03/14/2018, sodium 138, potassium 4.2, chloride 113, carbon dioxide 16, BUN 37, creatinine 2.57, phosphorus 2.7, calcium 9.1. ASSESSMENT AND PLAN: 1. Acute kidney injury on top of his chronic renal failure - superimposed prerenal azotemia, much im proved with IV hydration. Continue current lactated Ringer's. No indication for any dialytic interv ention. 2. Mild hypokalemia, resolved. P.r.n. potassium replacement. 3. Metabolic acidosis. We will continue to observe. Agree with current management. 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
[2018-03-14] MEDS: Simvastatin 20 MG TAB PO SCH (20:01)
[2018-03-14] MEDS: Ezetimibe 10 MG TAB PO SCH (20:01)
[2018-03-14] MEDS: Tamsulosin HCl 0.4 MG CAP PO SCH (20:02)
[2018-03-14] MEDS ORDERED: Famotidine 20 MG TAB PO SCH (21:00)
[2018-03-15] MEDS: Potassium Chloride 20 MEQ in Lactated Ringer's 1,000 ML IV SCH (02:41)
[2018-03-15 06:05] LABS: #Eosinphils 0.1 thou/uL (0.0-0.7); #Lymphocytes 2.7 thou/uL (1.20-3.40); #Monocytes 0.7 thou/uL (0.11-0.59); #Neutrophils 2.7 thou/uL (1.40-6.50); %Basophils 0.3 % (0.0-1.0); %Eosinophils 2.1 % (0.0-10.0); %Lymphocytes 43.3 % (21.0-51.0); %Monocytes 11.1 % (0.0-10.0); %Neutrophils 43.2 % (42.0-75.0); Hemoglobin 10.5 g/dL (14.0-18.0); Mean Corpuscular HGB CONC 34.5 g/dL (32.0-36.0); Mean Corpuscular Hemoglobin 31.4 pg (27.0-31.0); Mean Corpuscular Volume 91.2 fL (78.0-98.0); Mean Platelet Volume 8.6 fL (7.4-10.4); Platelet Count 248 thou/uL (130-400); RBC Distribution Width 11.7 % (11.5-14.5); Red Blood Cell (RBC) Count 3.34 mill/uL (4.70-6.10); White Blood Cell (WBC) Count 6.2 thou/uL (4.8-10.8)
[2018-03-15 06:18] LABS: Anion Gap 11 mmol/L (10-20); BUN (Urea Nitrogen) 22 mg/dL (8.4-25.7); Calc. Creatinine Clearance 46 mL/min (70-130); Calcium 8.5 mg/dL (7.8-10.44); Carbon Dioxide 21 mmol/L (23-31); Chloride 112 mmol/L (98-107); Estimated GFR-MDRD 60; Glucose 87 mg/dL (83-110); Magnesium 1.9 mg/dL (1.6-2.6); Phosphorus 2.2 mg/dL (2.3-4.7); Potassium 4.6 mmol/L (3.5-5.1); Sodium 139 mmol/L (136-145)
[2018-03-15 07:27] VITALS: BP 146/68; TEMP 98.1
[2018-03-15] MEDS: Multivitamin W/ Minerals 1 TAB PO SCH (09:28)
[2018-03-15] MEDS: Levothyroxine Sodium 50 MCG TAB PO SCH (09:28)
[2018-03-15] MEDS: Dronedarone HCl 400 MG TAB PO SCH (09:28)
[2018-03-15] MEDS: Heparin 5,000 UNITS/ML VIAL SC SCH (09:30)
[2018-03-15] MEDS: Aspirin 81 mg Enteric Coated Tablet PO SCH (09:30)
--- NOTE | 2018-03-15 09:37 | PDOC.PN ---
- Subjective Encounter Start Date: 03/15/18 Encounter Start Time: 06:40 Patient seen and examined. No new complaints. No overnight events - Objective Resuscitation Status: Resuscitation Status FULL:Full Resuscitation MAR Reviewed: Yes Vital Signs & Weight: Vital Signs (12 hours) Temp Pulse Resp BP Pulse Ox 03/15/18 07:24 98.1 F 64 16 146/68 H 99 03/15/18 00:00 63 96 Weight Weight 183 lb I&O: 03/14/18 03/15/18 03/16/18 06:59 06:59 06:59 Intake Total 2740 2550 Output Total 300 450 Balance 2440 2550 -450 Result Diagrams: 03/15/18 04:32 03/15/18 04:32 Phys Exam - Physical Examination Constitutional: NAD HEENT: PERRLA, moist MMs, sclera anicteric Neck: no JVD, supple Respiratory: no wheezing, no rales, no rhonchi Cardiovascular: RRR, no significant murmur, no rub Gastrointestinal: soft, non-tender, no distention, positive bowel sounds Musculoskeletal: no edema, pulses present Neurological: non-focal, normal sensation, moves all 4 limbs Psychiatric: normal affect, A&O x 3 Skin: no rash, normal turgor Dx/Plan (1) Acute diarrhea Code(s): R19.7 - DIARRHEA, UNSPECIFIED Status: Resolved (2) Acute renal failure superimposed on stage 3 chronic kidney disease Code(s): N17.9 - ACUTE KIDNEY FAILURE, UNSPECIFIED; N18.3 - CHRONIC KIDNEY DISEASE, STAGE 3 (MODERATE) Status: Resolved (3) Hypokalemia Code(s): E87.6 - HYPOKALEMIA Status: Resolved (4) Hypomagnesemia Code(s): E83.42 - HYPOMAGNESEMIA Status: Resolved (5) Normal anion gap metabolic acidosis Code(s): E87.2 - ACIDOSIS Status: Resolved (6) Atrial fibrillation Code(s): I48.91 - UNSPECIFIED ATRIAL FIBRILLATION Status: Chronic (7) BPH (benign prostatic hyperplasia) Code(s): N40.0 - BENIGN PROSTATIC HYPERPLASIA WITHOUT LOWER URINRY TRACT SYMP Status: Chronic (8) Dyslipidemia Code(s): E78.5 - HYPERLIPIDEMIA, UNSPECIFIED Status: Chronic (9) GERD (gastroesophageal reflux disease) Code(s): K21.9 - GASTRO-ESOPHAGEAL REFLUX DISEASE WITHOUT ESOPHAGITIS Status: Chronic (10) Hypertension Code(s): I10 - ESSENTIAL (PRIMARY) HYPERTENSION Status: Chronic (11) Hypothyroidism Code(s): E03.9 - HYPOTHYROIDISM, UNSPECIFIED Status: Chronic - Plan cont current plan of care, plan discussed w/ family * medication reviewed as below * symptomatic treatment * stable for discharge * see discharge daliy. Review of Systems - Review of Systems Eyes: negative: Pain, Vision Change, Conjunctivae Inflammation, Eyelid Inflammation, Redness, Other ENT: negative: Ear Pain, Ear Discharge, Nose Pain, Nose Discharge, Nose Congestion, Mouth Pain, Mouth Swelling, Throat Pain, Throat Swelling, Other Respiratory: negative: Cough, Dry, Shortness of Breath, Hemoptysis, SOB with Excertion, Pleuritic Pain, Sputum, Wheezing Cardiovascular: negative: chest pain, palpitations, orthopnea, paroxysmal nocturnal dyspnea, edema, light headedness, other Gastrointestinal: negative: Nausea, Vomiting, Abdominal Pain, Diarrhea, Constipation, Melena, Hematochezia, Other Genitourinary: negative: Dysuria, Frequency, Incontinence, Hematuria, Retention , Other Musculoskeletal: negative: Neck Pain, Shoulder Pain, Arm Pain, Back Pain, Hand Pain, Leg Pain, Foot Pain, Other Skin: negative: Rash, Lesions, Good, Bruising, Other - Medications/Allergies Allergies/Adverse Reactions: Allergies Allergy/AdvReac Type Severity Reaction Status Date / Time No Known Allergies Allergy Verified 03/12/18 17:56 Medications: Current Medications Acetaminophen (Tylenol) 650 mg PO Q4H PRN PRN Reason: Headache/Fever or Mild Pain Hydrocodone Bitart/Acetaminophen ([place] 5/325) 1 tab PO Q4H PRN PRN Reason: Moderate Pain (4-6) Artificial Tears (Tears Naturale) 0 drop EA EYE PRN PRN PRN Reason: Dry Eyes Aspirin (Ecotrin) 81 mg PO DAILY [facility] Last Admin: 03/14/18 09:26 Dose: 81 mg Calcium Carbonate (Tums) 1,000 mg PO Q4H PRN PRN Reason: Heartburn or Indigestion Diphenoxylate HCl/Atropine (Lomotil) 1 tab PO QIDPRN PRN PRN Reason: Diarrhea/Loose Stools Dronedarone (Multaq) 400 mg PO BID [facility] Last Admin: 03/14/18 20:01 Dose: 400 mg Ezetimibe (Zetia) 10 mg PO HS [facility] Last Admin: 03/14/18 20:01 Dose: 10 mg Famotidine (Pepcid) 20 mg PO 2100 [facility] Last Admin: 03/14/18 20:01 Dose: 20 mg Guaifenesin (Robitussin Sf) 200 mg PO Q4H PRN PRN Reason: Cough Heparin Sodium (Porcine) (Heparin) 5,000 units SC BID [facility] Last Admin: 03/14/18 20:04 Dose: 5,000 units Hydralazine HCl (Apresoline) 10 mg SLOW IVP Q4H PRN PRN Reason: Systolic BP > 180 Potassium Chloride 20 meq/ (Lactated Ringer's) 1,010 mls @ 100 mls/hr IV .Q10H6M [facility] Last Admin: 03/15/18 02:41 Dose: 1,010 mls Iron/Minerals/Multivitamins (Theragran M) 1 tab PO DAILY [facility] Last Admin: 03/14/18 09:27 Dose: 1 tab Levothyroxine Sodium (Synthroid) 50 mcg PO QAM [facility] Last Admin: 03/14/18 09:27 Dose: 50 mcg Loperamide HCl (Imodium) 2 mg PO PRN PRN PRN Reason: Diarrhea/Loose Stools Loratadine (Claritin) 10 mg PO DAILYPRN PRN PRN Reason: Sinus Symptoms Mineral Oil/White Petrolatum (Eucerin Cream) 0 gm TOP BIDPRN PRN PRN Reason: Dry Skin Ondansetron HCl (Zofran Odt) 4 mg PO Q6H PRN PRN Reason: Nausea/Vomiting Ondansetron HCl (Zofran) 4 mg IVP Q6H PRN PRN Reason: Nausea/Vomiting Pantoprazole Sodium (Protonix) 40 mg PO DAILY [facility] Last Admin: 03/14/18 09:27 Dose: 40 mg Phenol (Chloraseptic [place] 180 Ml Bot) 0 ml PO PRN PRN PRN Reason: Sore Throat Simvastatin (Zocor) 20 mg PO HS [facility] Last Admin: 03/14/18 20:01 Dose: 20 mg Sodium Chloride (Flush - Normal Saline) 10 ml IVF Q12HR [facility] Last Admin: 03/14/18 20:03 Dose: Not Given Sodium Chloride (Flush - Normal Saline) 10 ml IVF PRN PRN PRN Reason: Saline Flush Sodium Chloride ([place] Nasal [place] 0.65%) 0 ml EA NARE QIDPRN PRN PRN Reason: Nasal Congestion Tamsulosin HCl (Flomax) 0.4 mg PO [facility] Last Admin: 03/14/18 20:02 Dose: 0.4 mg
--- NOTE | 2018-03-15 10:23 | DIS ---
PRIMARY CARE PHYSICIAN: Dr. Lopez. DATE OF ADMISSION: 03/12/2018. DATE OF DISCHARGE: 03/15/2018. DISCHARGE DISPOSITION: Home. PRIMARY DISCHARGE DIAGNOSES: Acute renal failure on chronic kidney disease stage III, hypokalemia, h ypomagnesemia, normal anion gap metabolic acidosis acute, presumed viral diarrhea. SECONDARY DISCHARGE DIAGNOSES: Atrial fibrillation, benign enlargement of prostate, hypertension, dy slipidemia, gastroesophageal reflux disease, hypothyroidism. PRIMARY PROCEDURE/OPERATION: None. RADIOLOGICAL INVESTIGATION: Renal ultrasound was normal. SIGNIFICANT LABORATORY DATA: WBC 6.2, hemoglobin 10.5, platelet 248. Sodium 139, potassium 4.2, BUN 22, creatinine 1.37, phosphorus 2.2, magnesium 1.9. LFT normal. Urinalysis unremarkable. Stool fo r C. diff negative. DISCHARGE MEDICATIONS: Patient is advised to continue all his previous medication, Multaq 400 mg p.o . b.i.d., Vytorin 10/20 one tablet p.o. daily, Lasix 20 mg p.o. b.i.d., Synthroid 50 mcg p.o. daily, lisinopril 20 mg p.o. b.i.d., multivitamin 1 tablet p.o. daily, Protonix 40 mg p.o. b.i.d., MiraLax 1 7 grams p.o. daily, Flomax 0.4 mg p.o. at bedtime, amlodipine 10 mg p.o. daily, aspirin 81 mg p.o. da luis. CONTRAINDICATIONS: None. CODE STATUS: FULL CODE. INPATIENT CONSULTANTS: Dr. Goodman was following for renal failure. TEST RESULTS PENDING ON DISCHARGE: None. ALLERGIES: No known drug allergy. DISCHARGE PLAN: Post-hospital, the patient is advised to follow up with primary care physician and Madeleine Goodman. HOSPITAL COURSE: An 83-year-old male with above-mentioned medical problem who was admitted by Dr. Kylah barraza. Please see his H&P for further detail. The patient was having nausea, poor appetite, and diarrh ea for last 2-3 days before admission. The patient was refusing to come to the hospital initially, b ut as his diarrhea was not improving and he was feeling dizzy, lightheaded, and that is why he came t o hospital for evaluation. The patient was found with acute kidney failure. On admission, his creat inine was 6.16. He had a normal anion gap metabolic acidosis, hypokalemia and hypomagnesemia. The p atient was treated with IV fluid. Dr. Goodman was consulted. His renal ultrasound was normal. His abno rmal electrolytes were replaced while in hospital. His renal function is improving towards normal. The patient's diarrhea also stopped with Lomotil. The patient had negative Clostridium difficile. W e are not suspecting any infectious etiology. While in hospital, he remained afebrile. He improved clinically and he wants to go home today. The patient is seen and examined at bedside today. Plan o f care discussed with the and patient. Review of system reviewed and negative. Please see my p ermelinda note from today for further detail. We are not making any change in his medication. His blo od pressure medication was on hold for a while in hospital, but after that, we resume that medication as well.
--- NOTE | 2018-03-15 13:04 | PRG ---
DATE OF SERVICE: 03/15/2018 SUBJECTIVE: Mr. Hendrickson is an 83-year-old black male who was seen by the Renal Service for his acute kidney injury that was secondary to hemodynamically mediated renal dysfunction. He has a baseline c hronic renal failure. He has been doing well with IV hydration. Renal function is much improved. N o complaints of chest pain or shortness of breath. OBJECTIVE: VITAL SIGNS: Blood pressure is 146/68, heart rate 64, respiratory rate 16, temperature 98.1, pulse o x 99%. GENERAL: Awake, alert, supine, comfortable. SKIN: Adequate turgor. HEENT: Pinkish conjunctivae, anicteric sclerae. NECK: No neck mass, no carotid bruits, no JVD. CHEST: No deformities. LUNGS: Clear breath sounds, no wheezing, no crackles. HEART: Normal sinus rhythm. No murmur, no gallops, no rubs. ABDOMEN: Globular, soft, nontender, no masses. EXTREMITIES: No edema, no deformities. MEDICATIONS: Of 03/15/2018, was reviewed. LABORATORY DATA: Of 03/15/2018, white count 6.2, hemoglobin 10.5. Sodium 139, potassium 4.6, chlori de 112, carbon dioxide 21, BUN 22, creatinine 1.37, phosphorus 2.2, magnesium 1.9. ASSESSMENT AND PLAN: 1. Acute kidney injury -- hemodynamically mediated renal dysfunction. Much improved. The patient n ow has increased p.o. and his diarrhea is much improved. Agree to discharge the patient. The patien t instructed to follow up with his primary forepart rounder. 2. Mild , resolved with IV fluids.
== END 2018-03-15 10:59 | disposition home or self-care (01) | DRG 683 ==
LOC: ERS 14:35 → T4-B 17:35
PROVIDERS: ADMIT Internal Medicine; ATTEND Internal Medicine
DX: N17.9 Acute kidney failure, unspecified (principal); E87.2 Acidosis; I12.9 Hypertensive chronic kidney disease with stage 1 through stage 4 chronic kidney disease, or unspecified chronic kidney disease; N18.3 Chronic kidney disease, stage 3 (moderate); E87.6 Hypokalemia; E83.42 Hypomagnesemia; A08.4 Viral intestinal infection, unspecified; I48.91 Unspecified atrial fibrillation; N40.0 Benign prostatic hyperplasia without lower urinary tract symptoms; E78.5 Hyperlipidemia, unspecified; K21.9 Gastro-esophageal reflux disease without esophagitis; E03.9 Hypothyroidism, unspecified; I25.10 Atherosclerotic heart disease of native coronary artery without angina pectoris; Z95.1 Presence of aortocoronary bypass graft; E11.22 Type 2 diabetes mellitus with diabetic chronic kidney disease
CPT/HCPCS: 36415; 76770; 80048; 80053; 81001; 83735; 84100; 85025; 87324; 87449; 99285; A4216; G8978-GP-CJ; G8979-GP-CJ; G8980-GP-CJ; J1644; J3475; J3480; J7050; J7120; S0028

== ENCOUNTER 2019-07-21 18:17 | Emergency (ER) | payer MEDICARE ==
[2019-07-21 19:44] LABS: Hemoglobin 11.3 g/dL (14.0-18.0); Mean Corpuscular HGB CONC 32.3 g/dL (32.0-36.0); Mean Corpuscular Hemoglobin 30.1 pg (27.0-31.0); Mean Corpuscular Volume 93.1 fL (78.0-98.0); RBC Distribution Width 11.9 % (11.5-14.5); Red Blood Cell (RBC) Count 3.76 mill/uL (4.70-6.10); White Blood Cell (WBC) Count 20.2 thou/uL (4.8-10.8)
--- NOTE | 2019-07-21 19:48 | RAD ---
PORTABLE CHEST: 07/21/19 HISTORY: Chest pain. COMPARISON: 02/05/14. Lungs appear clear. Heart size within normal range. Postop sternotomy changes are noted. Vascularity is within normal range. IMPRESSION: No acute process. POS: OFF
[2019-07-21 20:02] LABS: ALT (SGPT) 42 U/L (8-55); AST (SGOT) 27 U/L (5-34); Albumin 4.1 g/dL (3.4-4.8); Alkaline Phosphatase 99 U/L (40-110); Anion Gap 14 mmol/L (10-20); BUN (Urea Nitrogen) 30 mg/dL (8.4-25.7); Bilirubin, Total 0.3 mg/dL (0.2-1.2); Calc. Creatinine Clearance 0 mL/min (70-130); Calcium 9.3 mg/dL (7.8-10.44); Carbon Dioxide 24 mmol/L (23-31); Chloride 104 mmol/L (98-107); Estimated GFR-MDRD 44; Globulin 3.4 g/dL (2.4-3.5); Glucose 119 mg/dL (83-110); Lipase 42 U/L (8-78); Protein, Total 7.5 g/dL (5.8-8.1); Sodium 138 mmol/L (136-145)
[2019-07-21 20:04] LABS: Band 1 % (5-11); Lymphocytes 11 % (21-51); MDiff Complete? YES; Mean Platelet Volume 9.7 fL (7.4-10.4); Monocytes 4 % (0-10); Neutrophil 79 % (42-75); Ovalocytes SLIGHT = 2-5 cells (100X) (0-1/hpf); Platelet Clumps MODERATE; Platelet Morphology Comment PLT clumps seen-LOW; Polychromasia SLIGHT = 2-3 cells (100X) (0-2/hpf); Reactive Lymphocytes 5 % (0-10); Schistocytes SLIGHT = 2-5 cells (100X) (0-1/hpf); Tear Drops SLIGHT = 2-5 cells (100X) (0-1/hpf)
[2019-07-21] MEDS ORDERED: Metoclopramide HCl 10 MG/2 ML VIAL ONE (21:53)
== END 2019-07-21 22:48 | disposition home or self-care (01) ==
LOC: ERS 18:17
DX: R06.6 Hiccough (principal); E03.9 Hypothyroidism, unspecified; I48.91 Unspecified atrial fibrillation; I10 Essential (primary) hypertension; Z87.891 Personal history of nicotine dependence; Z79.82 Long term (current) use of aspirin; Z79.899 Other long term (current) drug therapy
CPT/HCPCS: 36415; 71045; 80053; 83690; 84484; 85025; 93005; 96374; J2765

== ENCOUNTER 2022-03-02 18:09 | Emergency (ER) | payer MEDICARE ==
[2022-03-02 18:48] LABS: #Basophils 0.1 thou/uL (0.0-0.2); #Lymphocytes 1.4 thou/uL (1.20-3.40); #Monocytes 0.5 thou/uL (0.11-0.59); #Neutrophils 2.1 thou/uL (1.40-6.50); %Basophils 1.3 % (0.0-1.0); %Eosinophils 0.3 % (0.0-10.0); %Lymphocytes 34.8 % (21.0-51.0); %Monocytes 11.5 % (0.0-10.0); %Neutrophils 52.2 % (42.0-75.0); Hemoglobin 10.1 g/dL (14.0-18.0); Mean Corpuscular HGB CONC 32.7 g/dL (32.0-36.0); Mean Corpuscular Hemoglobin 30.5 pg (27.0-31.0); Mean Corpuscular Volume 93.2 fL (78.0-98.0); Mean Platelet Volume 8.9 fL (7.4-10.4); Platelet Count 222 thou/uL (130-400); RBC Distribution Width 12.6 % (11.5-14.5); Red Blood Cell (RBC) Count 3.33 mill/uL (4.70-6.10); White Blood Cell (WBC) Count 4.1 thou/uL (4.8-10.8)
[2022-03-02 19:05] LABS: ALT (SGPT) 18 U/L (8-55); AST (SGOT) 23 U/L (5-34); Albumin 3.4 g/dL (3.4-4.8); Alkaline Phosphatase 70 U/L (40-110); Anion Gap 12 mmol/L (10-20); BUN (Urea Nitrogen) 18 mg/dL (8.4-25.7); Bilirubin, Total 0.6 mg/dL (0.2-1.2); CK (CPK) 124 U/L (30-200); Calc. Creatinine Clearance 0 mL/min (70-130); Calcium 8.5 mg/dL (7.8-10.44); Carbon Dioxide 27 mmol/L (23-31); Chloride 105 mmol/L (98-107); Estimated GFR 41; Globulin 3.7 g/dL (2.4-3.5); Glucose 112 mg/dL (83-110); Magnesium 1.8 mg/dL (1.6-2.6); Potassium 3.2 mmol/L (3.5-5.1); Protein, Total 7.1 g/dL (5.8-8.1); Sodium 141 mmol/L (136-145)
[2022-03-02 19:25] LABS: CKMB 0.9 ng/mL (0-6.6)
[2022-03-02] MEDS ORDERED: Potassium Chloride 20 MEQ TAB ONE (20:01)
== END 2022-03-02 21:50 | disposition home or self-care (01) ==
LOC: ERS 18:09
DX: U07.1 COVID-19 (principal); I25.10 Atherosclerotic heart disease of native coronary artery without angina pectoris; I48.91 Unspecified atrial fibrillation; E03.9 Hypothyroidism, unspecified; I10 Essential (primary) hypertension; Z87.891 Personal history of nicotine dependence
CPT/HCPCS: 36415; 70450; 71045; 80053; 82550; 82553; 83735; 84443; 84484; 85025; 93005